=== PATIENT | female | born 1945 | race Caucasian/White ===

== ENCOUNTER → 2019-11-22 | Outpatient (CLI) | payer MEDICARE, MEDICAID ==
[~2019-11-22] MED LIST: CATHETER FLUSH 10 ML SYR IV PRN
--- NOTE | 2019-11-22 14:41 | Diagnostic Imaging Report ---
Indication: Left leg pain. The patient received 25.5 mCi intravenous dose technetium 99 MDP and after 3 hours whole-body planar imaging was performed. Findings: This focal elevated vertebral body uptake at the approximate T9 level as well as involving 2 consecutive lower lumbar segments believed L4 and L5. These show a unique degree of elevated uptake when compared to the remaining spine and therefore suspicious for uptake owing to fractures. Plain film correlation recommended if not already performed at an outside facility. There are arthritic changes involving the left greater than right knees as well as left greater than right ankle and hind feet. There are mild arthritic changes to the bilateral shoulders. The calvarium unremarkable. No suspicious rib uptake or soft tissue uptake and excretion by urinary tracts. Impression: 1. Mid to lower thoracic and lower lumbar vertebral abnormal uptake out of proportion, the remaining levels atypical for degenerative pattern and suspicious for fracture. Plain film correlation recommended. 2. Likely severe arthritic changes to the left knee, elsewhere more mild long bone degenerative uptake. Dictated by: Dictated on workstation # [id number]
== END ==
LOC: CARD 12:00
PROVIDERS: ATTEND Nurse Practitioner Family
DX: M25.562 Pain in left knee (principal); M79.605 Pain in left leg
CPT/HCPCS: 78306; A9503